=== PATIENT | female | born 1935 | race Caucasian/White ===

== ENCOUNTER 2016-09-03 02:55 | Emergency (ER) | payer MEDICARE, BC ==
--- NOTE | ~2016-09-03 | CT52 ---
[facility] A Service [facility] RADIOLOGY TEXT RESULTS PATIENT: CLARIBEL HASKINS LOCATION: SED : 36 UNIT #: [id number] AGE: [address]: Bibi Acosta MD SEX: F ORDER DR: [id number] [place] [id number] E MR#: [id number] Acc #: [id number] NAME: CLARIBEL HASKINS. : 1935 SEX: F STUDY DATE/TIME: 09/03/2016 3:25 UNIT: SED ROOM: STUDY DESCRIPTION: CT Cervical Spine Wo Cont Attending Physician: Bibi Acosta M.D. Ordering Physician: Bibi Acosta M.D. Primary Care Physician: Teresa Ricardo M.D. MEDICAL IMAGING REPORT This report is preliminary unless electronic signature is present. EXAM CT cervical spine. INDICATION Fall at home. Neck pain and headache. TECHNIQUE CT of the cervical spine without contrast. Coronal and sagittal reconstructions were obtained. This CT exam was performed with one or more of the following radiation dose reduction techniques: automatic exposure control, adjustment of mA and/or kV according to patient size, and iterative reconstruction. COMPARISON None available. FINDINGS There is no acute fracture or subluxation of the cervical spine. Vertebral body height and alignment is within normal limits. There is multilevel degenerative change throughout the cervical spine. This consists of disc space narrowing, osteophyte formation, and facet arthropathy. There are degenerative changes at the craniocervical junction and atlantoaxial articulations. Prevertebral soft tissues are within normal limits. IMPRESSION 1. No acute traumatic findings in the cervical spine. 2. Multilevel degenerative changes. [facility] A Service [facility] RADIOLOGY TEXT RESULTS PATIENT: CLARIBEL HASKINS LOCATION: SED : 36 UNIT #: [id number] AGE: [address]: Bibi Acosta MD SEX: F ORDER DR: Dictated by... Davion Irwin M.D. THIS IS AN ELECTRONICALLY VERIFIED REPORT Davion Irwin M.D. at 09/03/2016 11:10 PM JR/suzette TD: 09/03/2016 08:12 JOB #: [id number] MEDICAL IMAGING REPORT Page 1 of 1
--- NOTE | ~2016-09-03 | CR133 ---
[facility] A Service of [facility] RADIOLOGY TEXT RESULTS PATIENT: CLARIBEL HASKINS LOCATION: SED : 36 UNIT #: [id number] AGE: [address]: Bibi Acosta MD SEX: F ORDER DR: [id number] [place] [id number] E MR#: [id number] Acc #: [id number] NAME: CLARIBEL HASKINS : 1935 SEX: F STUDY DATE/TIME: 09/03/2016 3:33 UNIT: SED ROOM: STUDY DESCRIPTION: CR Forearm 2 View Rt Attending Physician: Bibi Acosta M.D. Ordering Physician: Bibi Acosta M.D. Primary Care Physician: Teresa Ricardo M.D. MEDICAL IMAGING REPORT This report is preliminary unless electronic signature is present. EXAM Right forearm. INDICATION Fall at home. Forearm pain. FINDINGS 2 views of the right forearm without comparison. There is a significant hematoma overlying the olecranon. No fracture or dislocation. No elbow effusion. Articulation at the wrist is anatomic. IMPRESSION Large superficial hematoma. No fracture. Dictated by... Davion Irwin M.D. THIS IS AN ELECTRONICALLY VERIFIED REPORT Davion Irwin M.D. at 09/03/2016 11:10 PM JR/suzette TD: 09/03/2016 08:09 JOB #: [id number] MEDICAL IMAGING REPORT Page 1 of 1
--- NOTE | ~2016-09-03 | CT71 ---
[facility] A Service [facility] RADIOLOGY TEXT RESULTS PATIENT: CLARIBEL HASKINS LOCATION: SED : 36 UNIT #: [id number] AGE: [address]: Bibi Acosta MD SEX: F ORDER DR: [id number] [place] [id number] E MR#: [id number] Acc #: [id number] NAME: CLARIBEL HASKINS. : 1935 SEX: F STUDY DATE/TIME: 09/03/2016 3:25 UNIT: SED ROOM: STUDY DESCRIPTION: CT Head Wo Contrast Attending Physician: Bibi Acosta M.D. Ordering Physician: Bibi Acosta M.D. Primary Care Physician: Teresa Ricardo M.D. MEDICAL IMAGING REPORT This report is preliminary unless electronic signature is present. EXAM CT head. INDICATION Fall at home. Headache. Neck pain. TECHNIQUE CT of the head without contrast. This CT exam was performed with one or more of the following radiation dose reduction techniques: automatic exposure control, adjustment of mA and/or kV according to patient size, and iterative reconstruction. COMPARISON CT head, 07/28/2015. FINDINGS There is no acute intracranial hemorrhage, mass lesion, or acute infarct. 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 There is generalized atrophy and chronic small vessel changes. The ventricles are mildly dilated, however, this is felt to be commensurate with the degree of volume loss. No extraaxial collections. No acute osseous abnormalities. IMPRESSION 1. No acute intracranial findings. 2. Atrophy and chronic small vessel changes. 3. 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 [facility] A Service [facility] RADIOLOGY TEXT RESULTS PATIENT: CLARIBEL HASKINS LOCATION: SED : 36 UNIT #: [id number] AGE: [address]: Bibi Acosta MD SEX: F ORDER DR: Dictated by... Davion P. Alida, M.D. THIS IS AN ELECTRONICALLY VERIFIED REPORT Davion Irwin M.D. at 09/03/2016 11:10 PM JR/suzette TD: 09/03/2016 08:10 JOB #: [id number] MEDICAL IMAGING REPORT Page 1 of 1
[~2016-09-03 02:55] MED LIST: ACETAMINOPHEN650 M3 PO; ALPRAZOLAM0.25 MG PO; AMARYL PO; AMARYL1 MG PO; AMLODIPINE BESY10 MG PO; ARTIFICIAL TEAR15 M3 OP; ASCORBIC ACID500 M2 PO; CARVEDILOL12.5 MG PO; CARVEDILOL6.25 MG PO; CELEXA20 MG PO; COLACE PO; COREG PO; COREG6.25 MG PO; CVS VITAMIN C PO; DEPAKOTE PO; DEPAKOTE250 MG PO; DILANTIN PO; DILANTIN50 MG PO; HYDROCODON-ACE1 EA11 PO; HYDROCODON-ACE1 EAC7 PO; K-DUR10 MEQ PO; KEPPRA PO; KEPPRA1000 MG PO; KEPPRA750 M1 PO; LASIX PO; LASIX20 MG PO; LEVETIRACETAM1000 MG PO; LEVOTHYROXINE50 MCG PO; LISINOPRIL10 MG PO; LISINOPRIL20 MG PO; MEGA MULTIVIT PO; MIRALAX17 GM PO; MULTI VITAMIN1 EACH PO; NATURAL TEARS; NEURONTIN100 MG PO; NORCO 10-325 TA1 TAB PO; NOVOLOG100 U/ML; OMEPRAZOLE20 M2 PO; POLYTRIM EYE DR10 ML OP; PRILOSEC PO; PRILOSEC20 MG PO; RANITIDINE HCL150 M1 PO; RISPERDAL0.5 MG PO; RISPERDAL1 M1 PO; RISPERIDONE PO; RISPERIDONE1 MG PO; SILDENAFIL20 MG PO; SKELAXIN; SYNTHROID25 MCG PO; VIMPAT100 MG PO; VIMPAT150 MG PO; VIMPAT50 MG PO; VITAMIN C500 M1 PO; ZANTAC150 M1 PO; [UNRECOGNIZED DRUG - OTHER] OP
== END 2016-09-03 04:45 | disposition home or self-care (01) ==
LOC: SED 02:55
DX: S00.93XA Contusion of unspecified part of head, initial encounter (principal); S50.11XA Contusion of right forearm, initial encounter; E03.9 Hypothyroidism, unspecified; W01.0XXA Fall on same level from slipping, tripping and stumbling without subsequent striking against object, initial encounter; Y92.129 Unspecified place in nursing home as the place of occurrence of the external cause; Z91.040 Latex allergy status; Z88.8 Allergy status to other drugs, medicaments and biological substances
CPT/HCPCS: 70450; 72125; 73090; 99284